=== PATIENT | male | born 1935 | race Caucasian/White ===

== ENCOUNTER → 2017-05-31 | Outpatient (CLI) | payer OTHER ==
[~2017-05-31] MED LIST: DUTA0.5C PO; FLM4 PO; KETO0.5S33 IO; LPR25 PO; METF1000 PO; METH500T37 PO; OXYC1TAB3 PO; PRED1SUS3 IO; RMRS/45 PO; RXC5 PO; SIMV20TA2 PO; TEMA30CA4 PO; TRAM-10 PO
--- NOTE | 2017-05-31 13:59 | DIAGNOSTIC IMAGING REPORT ---
MRI OF THE BRAIN WITHOUT CONTRAST CLINICAL HISTORY: R41.3 Memory [id number] CONFUSION COMPARISON STUDY: Outside CT scan the head performed in September 2005 FINDINGS: Sagittal T1, axial diffusion, proton density and T2 weighted axial, coronal FLAIR, and axial T1-weighted images were acquired. No intra or extra-axial mass lesions are visualized Axial diffusion-weighted images reveal no evidence of acute or subacute infarction. There is mild particular prominence, likely secondary to volume loss. Proton density T2-weighted and FLAIR images reveal scattered foci of increased T2 signal within the white matter, likely on a small vessel basis. There are no abnormal flow voids. IMPRESSION: 1. No acute intracranial findings 2. No evidence of intracranial mass 3. No evidence of acute or subacute infarction 4. Foci of increased T2 signal within the white matter likely on a small vessel basis Electronically signed by: Ravi Holm M.D. 05/31/2017 1:57 PM Dictated Date/Time: 05/31/2017 1:55 PM
[2017-05-31 14:35] LABS: BASO % 0.2 %; BASO ABS # 0.01 K/uL (0-0.2); HEMATOCRIT 34.2 % (42-52); HEMOGLOBIN 11.5 g/dL (14.0-18.0); IG# 0.03 K/uL (0.00-0.02); LYMPH ABS # 2.84 K/uL (1.2-3.4); MEAN CELL VOLUME 94.7 fL (80-100); MEAN CORPUSCULAR HEMOGLOBIN 31.9 pg (25-34); MEAN CORPUSCULAR HGB CONC 33.6 g/dl (32-36); MEAN PLATELET VOLUME 11.3 fL (7.4-10.4); MONO % 19.4 %; NEUT % 33.9 %; PLATELET COUNT 110 K/uL (130-400); RED CELL DISTRIBUTION WIDTH CV 14.9 % (11.5-14.5); RED CELL DISTRIBUTION WIDTH SD 50.5 fL (36.4-46.3); WHITE BLOOD COUNT 6.18 K/uL (4.8-10.8)
[2017-05-31 15:28] LABS: BLOOD UREA NITROGEN 22 mg/dl (7-18); CALCIUM 9.7 mg/dl (8.5-10.1); CARBON DIOXIDE 26 mmol/L (21-32); CREATININE 1.06 mg/dl (0.60-1.40); GLUCOSE 125 mg/dl (70-99); POTASSIUM 4.2 mmol/L (3.5-5.1); SODIUM 138 mmol/L (136-145)
[2017-05-31 15:35] LABS: CHOLESTEROL 64 mg/dl (0-200); LDL CHOLESTEROL CALCULATED 3 mg/dl
[2017-06-01 05:58] LABS: HEMOGLOBIN A1C 6.9 % (4.5-5.6)
== END | disposition home or self-care (01) ==
LOC: C.MRI 12:57
PROVIDERS: ATTEND Internal Medicine
DX: N40.0 Benign prostatic hyperplasia without lower urinary tract symptoms (principal); C61 Malignant neoplasm of prostate; R39.12 Poor urinary stream; R35.0 Frequency of micturition; E11.9 Type 2 diabetes mellitus without complications; E78.5 Hyperlipidemia, unspecified; I10 Essential (primary) hypertension; D64.9 Anemia, unspecified; R41.3 Other amnesia

== ENCOUNTER → 2017-06-13 | Outpatient (CLI) | payer OTHER ==
[~2017-06-13] VITALS: Ht 170.2 cm; Wt 88.9 kg
[~2017-06-13] MED LIST changes: +CIPROFLOXACIN / D5W 400 MG IV SCH; +GLIM2TAB2 PO; +LACTATED RINGER'S 1000ML 1,000 ML IV SCH; +OXYC-57 PO; +PRLSR20 PO; +SIMV40TA2 PO; +TIZA4CAP PO; +TRAZ50TA35 PO
[2017-06-13 15:09] VITALS: Ht 170.2 cm; Wt 88.9 kg
--- NOTE | 2017-06-13 15:38 | PAT Medication Instructions ---
Service Date Jun 13, 2017. Current Home Medication List Dutasteride (Avodart), 0.5 MG PO QAM Glimepiride (Glimepiride), 1 TAB PO QAM Metformin Hcl (Glucophage), 1,000 MG PO BID Metoprolol Tartrate (Lopressor), 25 MG PO BID Mirtazapine (Mirtazapine), 45 MG PO HS Omeprazole (Prilosec), 20 MG PO PRN Oxycodone/Acetaminophen 5MG/325MG (Percocet 5MG/325MG), 1 TABLET PO TID PRN for RN Simvastatin (Zocor), 40 MG PO QPM Simvastatin (Zocor), 40 MG PO QPM Temazepam (Restoril), 30 MG PO HS Tizanidine (Zanaflex), 4 MG PO HS Trazodone Hcl (Trazodone), 50 MG PO HS Medication Instructions For Your Scheduled Surgery - Hold the following medications 48 hours prior to surgery: Metformin Hcl (Glucophage), 1,000 MG PO BID - Hold the following medications the morning of surgery: Dutasteride (Avodart), 0.5 MG PO QAM Glimepiride (Glimepiride), 1 TAB PO QAM - Take the following medications the morning of surgery with a sip of water: Metoprolol Tartrate (Lopressor), 25 MG PO BID Omeprazole (Prilosec), 20 MG PO PRN Dutasteride (Avodart), 0.5 MG PO QAM Glimepiride (Glimepiride), 1 TAB PO QAM (if needed) Oxycodone/Acetaminophen 5MG/325MG (Percocet 5MG/325MG), 1 TABLET PO TID PRN for RN (okay to take up to 4 hours prior to surgery if needed) - Take the following medications as scheduled the night before surgery: Simvastatin (Zocor), 40 MG PO QPM Simvastatin (Zocor), 40 MG PO QPM Temazepam (Restoril), 30 MG PO HS Tizanidine (Zanaflex), 4 MG PO HS Trazodone Hcl (Trazodone), 50 MG PO HS Oxycodone/Acetaminophen 5MG/325MG (Percocet 5MG/325MG), 1 TABLET PO TID PRN for RN (if needed) Mirtazapine (Mirtazapine), 45 MG PO HS Omeprazole (Prilosec), 20 MG PO PRN (if needed) Metoprolol Tartrate (Lopressor), 25 MG PO BID If you have any questions please call us at [phone] or [phone] or [phone]
--- NOTE | 2017-06-13 16:39 | DIAGNOSTIC IMAGING REPORT ---
CHEST 2 VIEWS ROUTINE HISTORY: Preop. COMPARISON: Chest 01/30/2014. FINDINGS: No focal lung consolidations to suggest pneumonia. No evidence for pulmonary edema. The heart remains mildly enlarged. There are poststernotomy changes. No pleural effusions. No pneumothorax. Posterior fusion hardware seen within the upper lumbar spine. Small linear density within the right lung base favor subsegmental atelectasis or scarring. IMPRESSION: No significant change compared to the prior study. No acute process. Electronically signed by: Jimmy Hyde M.D. 06/13/2017 4:38 PM Dictated Date/Time: 06/13/2017 4:36 PM
== END | disposition home or self-care (01) ==
LOC: C.LAB 08:00 → EDSTATUS 06-30 15:46
PROVIDERS: ATTEND Urology
DX: Z01.810 Encounter for preprocedural cardiovascular examination (principal); Z01.811 Encounter for preprocedural respiratory examination; Z01.812 Encounter for preprocedural laboratory examination; I49.1 Atrial premature depolarization